=== PATIENT | male | born 1960 | race Caucasian/White ===

== ENCOUNTER → 2023-04-13 | Outpatient (CLI) | payer OTHER ==
[~2023-04-13] MED LIST: CATHETER FLUSH 10 ML SYR IVP PRN
[2023-04-13 09:36] VITALS: BP 140/90
--- NOTE | 2023-04-13 12:14 | Cardiology Stress Test Report ---
Stress Test Report Date of Procedure/Referring: Date of Procedure: Apr 13, 2023 PCP Shelia Cheng Admitting Physician Admitting Physician: Attending Physician: Ondina Mabry Indications: HTN Baseline Heart Rate: 80 Baseline Blood Pressure: Blood Pressure Systolic: 140 Blood Pressure Diastolic: 90 Vital Signs Date Time Temp Pulse Resp B/P (MAP) Pulse Ox O2 Delivery O2 Flow Rate FiO2 04/13/23 09:36 82 20 140/90 (107) 98 Baseline Vital Signs Vital Signs Date Time Temp Pulse Resp B/P (MAP) Pulse Ox O2 Delivery O2 Flow Rate FiO2 04/13/23 09:36 82 20 140/90 (107) 98 Baseline EKG: Baseline EKG: NSR Summary: After explaining the procedure and details to the patient, he signed the consent and was brought to the stress nuclear laboratory. Patient exercised on standard Franki protocol, EKG, heart rate and blood pressure were monitored continuously, resting and stress doses of radio tracer were injected, imaging was acquired and reviewed in the short axis, horizontal long axis and vertical long axis views Patient was able to exercise for a total of 5.30 minutes on Franki protocol, METs 7.1 Maximum heart rate 145 Maximum blood pressure 214/105 Stress EKG, Minimal nondiagnostic changes Recovery EKG, Return to baseline TID: 1.09 SSS: 0 SDS: 0 EF: 51 Conclusion: Fair exercise tolerance for 5 minutes and 30 seconds on standard Franki protocol, 7.1 METS achieving 92% of maximal expected heart rate Appropriate heart rate response to exercise with frequent PVCs persisted during test, occasional ventricular couplets. Hypertensive response to exercise with peak blood pressure 214/105 return to baseline during recovery No ischemia or infarction noted on SPECT images Normal left ventricular size, ejection fraction 51% ATIYA LAND MD Apr 13, 2023 12:14
== END ==
LOC: CARD 08:18
PROVIDERS: ATTEND Physician Assistant
DX: I11.9 Hypertensive heart disease without heart failure (principal); I35.8 Other nonrheumatic aortic valve disorders; E11.9 Type 2 diabetes mellitus without complications; E78.5 Hyperlipidemia, unspecified
CPT/HCPCS: 78452; 93017; A9502; C8929; 93306